=== PATIENT | female | born 1965 | race Caucasian/White ===

== ENCOUNTER 2016-09-08 07:56 | Emergency (ER) | payer OTHER, MEDICAID ==
[~2016-09-08] VITALS: Ht 165.1 cm; Wt 52.6 kg
[2016-09-08 09:45] VITALS: BP 149/88
== END 2016-09-08 11:17 | disposition home or self-care (01) ==
LOC: ER 07:56
DX: S09.90XA Unspecified injury of head, initial encounter (principal); W01.0XXA Fall on same level from slipping, tripping and stumbling without subsequent striking against object, initial encounter; Y93.89 Activity, other specified; Y99.8 Other external cause status; Y92.89 Other specified places as the place of occurrence of the external cause; Z88.0 Allergy status to penicillin
CPT/HCPCS: 70450; 73080; 73090; 73110; 73130

== ENCOUNTER 2016-12-03 16:02 | Inpatient (IN) | payer OTHER, MEDICAID ==
[~2016-12-03] VITALS: Ht 165.1 cm; Wt 52.6 kg
[~2016-12-03 16:02] MED LIST: FLUT110A INH; OXYB5TAB61 PO; VALP250C9 PO
[2016-12-03] MEDS ORDERED: SODIUM CHLORIDE 0.9% 1,000 ML IV ONE (16:35)
[2016-12-03] MEDS ORDERED: ONDANSETRON HCL 4 MG/2 ML VIAL IV ONE (16:45)
[2016-12-03] MEDS ORDERED: PANTOPRAZOLE 40 MG TAB PO ONE (16:45)
[2016-12-03 17:55] LABS: Basophils # (auto) 0 uL; Basophils % (auto) 0.1 % (0.0-2.0); CONDITION Y; DEFINITIVE SEE PRINTOUT; Eosinophils # (auto) 0 uL; Eosinophils % (auto) 0.1 % (0.0-7.0); Hematocrit 34.9 % (36.0-46.0); Hemoglobin 11.9 g/dL (12.2-16.2); Mean Corpuscular Hemoglobin 36.5 pg (28.0-32.0); Mean Corpuscular Hgb Conc. 34.2 g/dL (32.0-36.0); Mean Corpuscular Volume 106.8 fL (80.0-100.0); Mean Platelet Volume 10.3 fL (7.4-10.4); Monocytes # (auto) 0.7 uL; Monocytes % (auto) 6.6 % (0.0-12.0); Neutrophils # (auto) 9.2 uL; Neutrophils % (auto) 84.2 % (37.0-80.0); Platelet Count (auto) 244 10^3/uL (140-450)
[2016-12-03 18:05] LABS: Urine RBC None Seen /hpf (0 - 4)
[2016-12-03 18:18] LABS: Albumin 2.7 g/dL (3.4-5.0); BUN/Creatinine Ratio 21.7; Calcium 8.7 mg/dL (8.5-10.1); Magnesium 2.8 mg/dL (1.6-2.6); Potassium 3.8 mmol/L (3.5-5.1)
[2016-12-03 19:04] LABS: Bilirubin, Total 0.4 mg/dL (0.2-1.0); Total Protein 6.8 g/dL (6.4-8.2)
[2016-12-03 19:07] LABS: Urine Bilirubin Negative (Negative); Urine Blood Negative /uL (Negative); Urine Color Yellow (Yellow); Urine Glucose Normal (Normal); Urine Hyaline Cast FEW /lpf (0 - 2); Urine Ketone Negative (Negative); Urine Mucus FEW (None Seen); Urine Nitrite Negative (Negative); Urine Squamous Epithelial Cell FEW /hpf (<5); Urine Urobilinogen Normal (Negative)
[2016-12-03] MEDS ORDERED: ENOXAPARIN SOD 60 MG/0.6 ML SYRINGE SC ONE ×2 (19:30)
[2016-12-03] MEDS ORDERED: LEVOFLOXACIN 500MG 100 ML IV ONE (20:30)
[2016-12-03] MEDS ORDERED: MORPHINE SULF INJ 2 MG/ML SYRINGE 1ML IV PRN ×2 (21:15)
[2016-12-03] MEDS ORDERED: HYDROcodone-ACET 5/325MG TAB PO PRN (21:15)
[2016-12-03] MEDS ORDERED: LACTULOSE 20Gm/30ML SOLN PO PRN (21:15)
[2016-12-03] MEDS ORDERED: ONDANSETRON HCL 4 MG/2 ML VIAL IV PRN (21:15)
[2016-12-03] MEDS ORDERED: NITROGLYCERIN 0.4 MG SL TAB SL PRN (21:15)
[2016-12-03] MEDS ORDERED: ACETAMINOPHEN 500 MG TAB PO PRN (21:15)
[2016-12-03] MEDS ORDERED: MECLIZINE HCL 25 MG TAB PO PRN (21:30)
[2016-12-03] MEDS ORDERED: ALBUTEROL SULF 2.5 MG/0.5ML(0.5%) NEB SOLN NEB PRN (21:30)
[2016-12-03] MEDS ORDERED: VALPROATE SOD 250 MG/5 ML ORAL SOLN PO ONE (22:00)
[2016-12-03] MEDS ORDERED: ATORVASTATIN 20 MG TAB PO SCH (22:00)
[2016-12-03] MEDS ORDERED: LORazepam 2MG/ML-1ML VIAL ONE (22:12)
[2016-12-03] MEDS ORDERED: LORazepam 2MG/ML-1ML VIAL IV PRN (22:15)
[2016-12-03] MEDS: METOPROLOL TARTRATE 25 MG TAB PO SCH (22:28)
[2016-12-03] MEDS: busPIRone HCL 10 MG TAB PO SCH (22:28)
[2016-12-03 23:20] VITALS: BP 137/91
[2016-12-04 05:00] VITALS: BP 104/51
[2016-12-04 06:43] LABS: Basophils # (auto) 0 uL; Basophils % (auto) 0.2 % (0.0-2.0); CONDITION Y; DEFINITIVE SEE PRINTOUT; Eosinophils # (auto) 0 uL; Hematocrit 29.4 % (36.0-46.0); Hemoglobin 10.1 g/dL (12.2-16.2); Lymphocytes # (auto) 0.9 uL; Lymphocytes % (auto) 9.8 % (10.0-50.0); Mean Corpuscular Hgb Conc. 34.3 g/dL (32.0-36.0); Mean Corpuscular Volume 107.6 fL (80.0-100.0); Mean Platelet Volume 10.9 fL (7.4-10.4); Monocytes # (auto) 0.4 uL; Monocytes % (auto) 4.1 % (0.0-12.0); Neutrophils # (auto) 8.1 uL; Neutrophils % (auto) 85.9 % (37.0-80.0); Platelet Count (auto) 185 10^3/uL (140-450); Red Cell Distribution Width 13.5 % (11.6-16.0); White Blood Cell 9.4 10^3/uL (4.4-10.8)
[2016-12-04] MEDS ORDERED: LEVOTHYROXINE SODIUM 25 MCG TAB PO SCH (07:00)
[2016-12-04 07:08] LABS: Calcium 8.4 mg/dL (8.5-10.1); Potassium 3.4 mmol/L (3.5-5.1)
[2016-12-04] MEDS ORDERED: FENO54TA4 PO (07:35)
[2016-12-04] MEDS ORDERED: PAR20T PO (07:35)
[2016-12-04] MEDS ORDERED: KETO2CRE TOP (07:35)
[2016-12-04] MEDS ORDERED: LEVO75TA6 PO (07:35)
[2016-12-04] MEDS ORDERED: LORA-622 PO (07:35)
[2016-12-04] MEDS ORDERED: FURO20TA3 PO (07:35)
[2016-12-04] MEDS ORDERED: ALPR0.254 PO (07:35)
[2016-12-04] MEDS ORDERED: BUSP15TA60 PO (07:35)
[2016-12-04 07:58] LABS: Temperature: 23.5 C (20.0-25.0)
[2016-12-04 08:00] VITALS: BP 115/56
[2016-12-04] MEDS ORDERED: SODIUM CHLORIDE 0.9% 1,000 ML IV SCH (08:40)
[2016-12-04] MEDS ORDERED: ENOXAPARIN SOD 60 MG/0.6 ML SYRINGE SC ONE (08:45)
[2016-12-04] MEDS ORDERED: ASPirin 81 mg TAB PO SCH (10:00)
[2016-12-04] MEDS ORDERED: FUROSEMIDE 20 MG TAB PO SCH (10:00)
[2016-12-04] MEDS: METOPROLOL TARTRATE 25 MG TAB PO SCH (10:00)
[2016-12-04] MEDS ORDERED: PARoxetine 20 MG TAB PO SCH (10:00)
[2016-12-04 10:09] VITALS: BP 137/91
[2016-12-04] MEDS: busPIRone HCL 10 MG TAB PO SCH (11:30)
[2016-12-04 14:30] LABS: Cholesterol 116 mg/dL (< 200); HDL Cholesterol 53 mg/dL (40-59); LDL Cholesterol 54 mg/dL (< 100); Triglycerides 103 mg/dL (< 150)
== END 2016-12-04 11:35 | disposition short-term general hospital (02) | DRG 280 ==
LOC: EDBD 16:02 → ER 16:10 → TELE 16:11 → TELE-CENTR 23:19
PROVIDERS: ADMIT Nurse Practitioner Family; ATTEND Nurse Practitioner Family
DX: I21.4 Non-ST elevation (NSTEMI) myocardial infarction (principal); N17.0 Acute kidney failure with tubular necrosis; N18.4 Chronic kidney disease, stage 4 (severe); I13.0 Hypertensive heart and chronic kidney disease with heart failure and stage 1 through stage 4 chronic kidney disease, or unspecified chronic kidney disease; D64.9 Anemia, unspecified; I50.9 Heart failure, unspecified; K59.00 Constipation, unspecified; D72.829 Elevated white blood cell count, unspecified; R62.59 Other lack of expected normal physiological development in childhood; F31.9 Bipolar disorder, unspecified; F41.9 Anxiety disorder, unspecified; J45.909 Unspecified asthma, uncomplicated; K21.9 Gastro-esophageal reflux disease without esophagitis; Z79.899 Other long term (current) drug therapy; Z87.01 Personal history of pneumonia (recurrent); Z88.0 Allergy status to penicillin
CPT/HCPCS: 36415; 71020; 80048; 80053; 80061; 80164; 81001; 82550; 83735; 83880; 84443; 84484; 85025; 85652; 86141; 87081; 93005; 96372; 96374; 96375; J1956; J2405

== ENCOUNTER 2018-06-01 10:03 | Emergency (ER) | payer MEDICAID, OTHER ==
[~2018-06-01] VITALS: Ht 170.2 cm; Wt 65.3 kg
[~2018-06-01 10:03] MED LIST changes: +ALPR0.254 PO; +BUSP15TA60 PO; +FENO54TA4 PO; +FURO20TA3 PO; +KETO2CRE4 TOP; +LEVO75TA6 PO; +LORA-622 PO; +PAR20T PO
[2018-06-01 10:30] VITALS: BP 116/62
[2018-06-01] MEDS ORDERED: cefTRIAXone SOD 1,000 MG VL IM ONE (11:30)
== END 2018-06-01 12:03 | disposition home or self-care (01) ==
LOC: ER 10:03
DX: T81.49XA Infection following a procedure, other surgical site, initial encounter (principal); J45.909 Unspecified asthma, uncomplicated; K21.9 Gastro-esophageal reflux disease without esophagitis; E78.5 Hyperlipidemia, unspecified; I12.9 Hypertensive chronic kidney disease with stage 1 through stage 4 chronic kidney disease, or unspecified chronic kidney disease; N18.9 Chronic kidney disease, unspecified; E07.9 Disorder of thyroid, unspecified; Z88.0 Allergy status to penicillin; Z79.899 Other long term (current) drug therapy; Z48.01 Encounter for change or removal of surgical wound dressing; Y84.8 Other medical procedures as the cause of abnormal reaction of the patient, or of later complication, without mention of misadventure at the time of the procedure; Y92.89 Other specified places as the place of occurrence of the external cause
CPT/HCPCS: 96372; 99283; J0696